=== PATIENT | male | born 2005 ===

== ENCOUNTER 2023-09-22 22:14 | Emergency (ER) | payer SELFPAY ==
[~2023-09-22] VITALS: Ht 165.1 cm; Wt 77.1 kg
[2023-09-22 22:25] VITALS: BP 125/79; PULSE 118; RESP 16; TEMP 98; O2SAT 97
[2023-09-22 22:46] VITALS: BP 125/79; PULSE 118; RESP 16; TEMP 98; O2SAT 97
== END 2023-09-22 22:46 ==
LOC: MED 22:14
DX: Z02.89 Encounter for other administrative examinations (principal); V49.88XA Car occupant (driver) (passenger) injured in other specified transport accidents, initial encounter; Y93.89 Activity, other specified; Y92.89 Other specified places as the place of occurrence of the external cause; Y99.8 Other external cause status
CPT/HCPCS: 99283